=== PATIENT | female | born 1985 | race Caucasian/White ===

== ENCOUNTER 2016-07-27 13:27 | Outpatient (CLI) | payer MEDICAID ==
[2016-07-27 19:44] LABS: ALBUMIN/GLOBULIN RATIO 0.9 (1.0-2.2); BILIRUBIN,TOTAL 0.4 mg/dL (0.2-1.0); CALCIUM 9.4 mg/dL (8.5-10.3); CREATININE 0.7 mg/dL (0.4-1.0); POTASSIUM 4.3 mmol/L (3.5-5.0); TOTAL PROTEIN 7.9 g/dL (6.7-8.2)
== END 2016-07-27 13:28 | disposition home or self-care (01) ==
LOC: LAB.N 13:27
PROVIDERS: ATTEND Nurse Practitioner Gerontology
DX: Z79.899 Other long term (current) drug therapy (principal)
CPT/HCPCS: 36415; 80053

== ENCOUNTER 2016-07-29 13:43 | Outpatient (CLI) | payer MEDICAID ==
[2016-07-30 15:21] LABS: HEPATITIS A AB TOTAL(IMMUNITY) NON-REACTIVE (NON-REACTIVE)
== END 2016-07-29 13:44 ==
LOC: LAB.N 13:43
PROVIDERS: ATTEND Nurse Practitioner Gerontology
DX: R74.8 Abnormal levels of other serum enzymes (principal)
CPT/HCPCS: 36415; 86317; 86708; 86803; 87340; 87522

== ENCOUNTER 2016-08-11 13:35 | Outpatient (CLI) | payer MEDICAID ==
[2016-08-16 18:08] LABS: TEST RESULT REPORT (())
== END 2016-08-11 13:36 | disposition home or self-care (01) ==
LOC: LAB.N 13:35
PROVIDERS: ATTEND Nurse Practitioner Gerontology
DX: R74.8 Abnormal levels of other serum enzymes (principal)
CPT/HCPCS: 36415; 81599; 87521; 87522

== ENCOUNTER 2016-08-18 13:57 | Emergency (ER) | payer MEDICAID ==
[2016-08-18] MEDS ORDERED: KETOROLAC 60 MG/2 ML VIAL IM STA (14:52)
--- NOTE | 2016-08-18 14:55 | ED Physician Documentation ---
PD HPI BACK PAIN - Stated complaint Stated Complaint: BACK INJURY - Chief complaint Chief Complaint: Back Pain - History obtained from History obtained from: Patient - History of Present Illness Timing - onset: Other (31-year-old woman with chronic back pain, status post lumbar laminectomy several years ago. Was on baclofen for chronic spasticity and pain up until about a month ago and she was taken off by her physician. Over the last few days has had increase of pain after disassembling a couch at home and has a lot of pain with lifting, bending, sitting. It is in the low back and radiates to both hips but not further. She denies any saddle anesthesia, incontinence, or fevers.) Review of Systems Constitutional: denies: Fever, Chills Respiratory: denies: Dyspnea, Cough GI: denies: Abdominal Pain, Nausea, Vomiting : denies: Dysuria, Frequency PD PAST MEDICAL HISTORY - Past Medical History Respiratory: Asthma Neuro: None Musculoskeletal: Osteoarthritis, Chronic back pain - Past Surgical History Ortho: Spine surgery - Present Medications Home Medications: Ambulatory Orders Medication Instructions Recorded Confirmed Albuterol Sulfate [Proair Hfa 1 - 2 puffs PO Q4H PRN 08/18/16 08/18/16 Inhaler] Baclofen [Lioresal] 10 mg PO TID #30 tablet 08/18/16 Beclomethasone 80 Mcg [Qvar 80] 2 puffs PO BID 08/18/16 08/18/16 Cetirizine [ZyrTEC] 10 mg PO DAILY 08/18/16 08/18/16 Ethinyl Estradiol/Drospirenone 3 mg PO DAILY 08/18/16 08/18/16 [Fátima 28 Tablet] Fluticasone [Flonase] 1 spray RACQUEL DAILY PRN 08/18/16 08/18/16 Ibuprofen 800 mg PO TID PRN 08/18/16 08/18/16 Meloxicam [Mobic] 7.5 mg PO BIDWM PRN #15 tablet 08/18/16 Spironolactone 50 mg PO DAILY 08/18/16 08/18/16 metFORMIN [Glucophage] 500 mg PO BID 08/18/16 08/18/16 - Allergies Allergies/Adverse Reactions: Allergies Allergy/AdvReac Type Severity Reaction Status Date / Time gadopentetate dimeglumine * Allergy Unknown Hives Verified 08/18/16 14:39 [From Magnevist] acetaminophen [From Percocet] Allergy Itching Unverified 08/18/16 14:39 oxycodone HCl * Allergy Itching Unverified 08/18/16 14:39 [From Percocet] cyclobenzaprine HCl * AdvReac Unknown Verified 08/18/16 14:39 [From Flexeril] - Social History Does the pt smoke?: No Smoking Status: Never smoker PD ED PE NORMAL - Vitals Vital signs reviewed: Yes - General General: Alert and oriented X 3, No acute distress - HEENT HEENT: PERRL, EOMI - Extremities Extremities: Other (The patient has equal and normal patellar and Achilles reflexes bilaterally. Slight diminished sensation throughout the left leg which she says is chronic. Patient denies saddle anesthesia. Normal strength in flexion and extension at the ankles, knees and flexion of the hips.) - Neuro Neuro: Alert and oriented X 3, Normal speech - Psych Psych: Normal mood, Normal affect Results - Vitals Vitals: Vital Signs - 24 hr 08/18/16 14:04 Temperature 35.8 C L Heart Rate 104 H Respiratory 18 Rate Blood Pressure 148/86 H O2 Saturation 99 Oxygen O2 Source Room air PD MEDICAL DECISION MAKING - ED course ED course: Spinal epidural abscess was considered in this patient. The patient has no fever , is not diabetic, has no spinal tenderness, does not use IV drugs, and no bilateral neurologic symptoms. Therefore, spinal epidural abscess is considered exceedingly unlikely. It seems reasonable to put her back on her baclofen pending primary care followup since that was helping before. Departure - Departure Disposition: 01 Home, Self Care Clinical Impression: Back pain Qualifiers: Back pain location: low back pain Chronicity: chronic Back pain laterality: midline Sciatica presence: without sciatica Qualified Code(s): M54.5 - Low back pain; G89.29 - Other chronic pain Condition: Good Record reviewed to determine appropriate education?: Yes Instructions: ED Low Back Pain Injury Prescriptions: Baclofen [Lioresal] 10 mg PO TID #30 tablet Meloxicam [Mobic] 7.5 mg PO BIDWM PRN #15 tablet PRN Reason: Pain Comments: Call your doctor to arrange a follow up appointment. Make the next available appointment. In the interim return anytime if worse or if new symptoms develop. Your blood pressure was elevated today on check in to the emergency department. This does not mean that you have hypertension, it is a common phenomenon to check into the emergency department and have elevated blood pressure. I recommend that you see your primary care physician within the week to have it rechecked when you're feeling better.
[2016-08-18] MEDS ORDERED: KETOROLAC 60 MG/2 ML VIAL ONE (15:00)
[2016-08-18 15:35] VITALS: BP 130/83
== END 2016-08-18 15:33 | disposition home or self-care (01) ==
LOC: ED 13:57
DX: M54.5 Low back pain (principal); G89.29 Other chronic pain; R03.0 Elevated blood-pressure reading, without diagnosis of hypertension; J45.909 Unspecified asthma, uncomplicated; M19.90 Unspecified osteoarthritis, unspecified site
CPT/HCPCS: 96372; 99283

== ENCOUNTER 2016-08-19 16:01 | Emergency (ER) | payer MEDICAID ==
[2016-08-19 16:10] VITALS: BP 142/85
[2016-08-19] MEDS ORDERED: diazePAM 5 MG TABLET PO STA (16:43)
[2016-08-19] MEDS ORDERED: DEXAMETHASONE 10 MG/ML VIAL PO STA (16:43)
[2016-08-19] MEDS ORDERED: HYDROcod/ACETAM 5/325 MG TABLET PO STA (16:43)
[2016-08-19] MEDS ORDERED: diazePAM 5 MG TABLET PO ONE (16:54)
[2016-08-19] MEDS ORDERED: CHERRY SYRUP 10 ML UDC PO ONE (16:54)
[2016-08-19] MEDS ORDERED: HYDROcod/ACETAM 5/325 MG TABLET ONE (16:54)
[2016-08-19] MEDS ORDERED: DEXAMETHASONE 10 MG/ML VIAL ONE (16:55)
--- NOTE | 2016-08-19 17:30 | ED Physician Documentation ---
PD HPI BACK PAIN - Stated complaint Stated Complaint: BACK PX - Chief complaint Chief Complaint: Back Pain - History obtained from History obtained from: Patient, Family - History of Present Illness Timing - onset: Chronic Timing - details: Gradual onset Pain level max: 9 Pain level now: 9 Quality: Pain, Spasm Associated symptoms: No: Fever, Weakness, Numbness, Incontinent of urine, Unable to urinate, Hematuria, Incontinent of stool Improves with: Rest Worsened by: Movement Similar symptoms before: Diagnosis (Chronic back pain) Recently seen: Emergency Dept (Seen here yesterday for same) - Additional information Additional information: Patient is a 31-year-old female who presents to the emergency department with acute on chronic back pain. Has a history of a L4-L5 laminectomy several years ago. States she has been doing yard work and moving couches this week, increasing back pain over the past week. Was seen here yesterday and started on Mobic and baclofen without relief. Had been on baclofen previously for her back injury. Denies any fevers. Review of Systems Constitutional: denies: Fever, Chills Throat: denies: Sore throat Cardiac: denies: Chest pain / pressure Respiratory: denies: Cough GI: denies: Nausea, Vomiting, Diarrhea : denies: Dysuria, Frequency, Hesitancy, Discharge, Now EGA Skin: denies: Rash Musculoskeletal: denies: Neck pain Neurologic: denies: Focal weakness, Numbness, Confused, Altered mental status PD PAST MEDICAL HISTORY - Past Medical History Respiratory: Asthma Neuro: None Musculoskeletal: Osteoarthritis, Chronic back pain - Past Surgical History Past Surgical History: Yes Ortho: Spine surgery - Present Medications Home Medications: Ambulatory Orders Medication Instructions Recorded Confirmed Albuterol Sulfate [Proair Hfa 1 - 2 puffs PO Q4H PRN 08/18/16 08/18/16 Inhaler] Baclofen [Lioresal] 10 mg PO TID #30 tablet 08/18/16 Beclomethasone 80 Mcg [Qvar 80] 2 puffs PO BID 08/18/16 08/18/16 Cetirizine [ZyrTEC] 10 mg PO DAILY 08/18/16 08/18/16 Ethinyl Estradiol/Drospirenone 3 mg PO DAILY 08/18/16 08/18/16 [Fátima 28 Tablet] Fluticasone [Flonase] 1 spray RACQUEL DAILY PRN 08/18/16 08/18/16 Ibuprofen 800 mg PO TID PRN 08/18/16 08/18/16 Meloxicam [Mobic] 7.5 mg PO BIDWM PRN #15 tablet 08/18/16 Spironolactone 50 mg PO DAILY 08/18/16 08/18/16 metFORMIN [Glucophage] 500 mg PO BID 08/18/16 08/18/16 Hydrocodone/Acetaminophen 1 - 2 each PO Q6H PRN #14 tablet 08/19/16 [Hydrocodon-Acetaminophen 5-325] diazePAM [Valium] 5 - 10 mg PO TID PRN #15 tablet 08/19/16 - Allergies Allergies/Adverse Reactions: Allergies Allergy/AdvReac Type Severity Reaction Status Date / Time gadopentetate dimeglumine * Allergy Unknown Hives Verified 08/19/16 16:11 [From Magnevist] acetaminophen [From Percocet] Allergy Itching Verified 08/19/16 16:11 oxycodone HCl * Allergy Itching Verified 08/19/16 16:11 [From Percocet] cyclobenzaprine HCl * AdvReac Unknown Verified 08/19/16 16:11 [From Flexeril] - Social History Does the pt smoke?: No Smoking Status: Never smoker PD ED PE NORMAL - Vitals Vital signs reviewed: Yes - General General: Alert and oriented X 3, Well developed/nourished, Other (Appears uncomfortable) - HEENT HEENT: PERRL, Moist mucous membranes - Neck Neck: Supple, no meningeal sign - Cardiac Cardiac: RRR, Strong equal pulses - Respiratory Respiratory: No respiratory distress, Clear bilaterally - Abdomen Abdomen: Soft, Non tender, Non distended - Back Back: No spinal TTP, Other (No midline tenderness to palpation. Does have paraspinal spasm and tenderness in the low lumbar region.) - Derm Derm: Warm and dry - Extremities Extremities: Other (normal bilateral lower extremity patellar and ankle jerk reflexes. Normal great toe extension bilaterally) - Neuro Neuro: Alert and oriented X 3, secretary receptionist 2-12 intact, No motor deficit, No sensory deficit, Normal speech - Psych Psych: Normal mood, Normal affect Results - Vitals Vitals: Vital Signs - 24 hr 08/19/16 16:07 Temperature 35.3 C L Heart Rate 93 Respiratory 14 Rate Blood Pressure 142/85 H O2 Saturation 100 Oxygen O2 Source Room air PD MEDICAL DECISION MAKING - ED course Complexity details: reviewed results, re-evaluated patient, considered differential (no cauda equina, no spinal epidural abscess, no fracture, no aortic dissection or evidence of aneursym rupture), d/w patient ED course: Patient is a 31-year-old female with acute on chronic back pain. Pain greatly improved with hydrocodone and Valium here. She is able to stand and walk. She is feeling better. Will prescribe pain medications for home. This appears to be paraspinal spasm. No evidence of fracture, cauda equina, epidural abscess. Patient counseled regarding signs and symptoms for which I believe and urgent re -evaluation would be necessary. Patient with good understanding of and agreement to plan and is comfortable going home at this time This document was made in part using voice recognition software. While efforts are made to proofread this document, sound alike and grammatical errors may occur. Departure - Departure Disposition: 01 Home, Self Care Clinical Impression: Back pain Qualifiers: Back pain location: low back pain Chronicity: acute Back pain laterality: bilateral Sciatica presence: without sciatica Qualified Code(s): M54.5 - Low back pain Condition: Good Instructions: ED Low Back Pain Injury Follow-Up: Lisa Miles ARNP [Primary Care Provider] - Within 1 week Prescriptions: Hydrocodone/Acetaminophen [Hydrocodon-Acetaminophen 5-325] 1 - 2 each PO Q6H PRN #14 tablet PRN Reason: pain diazePAM [Valium] 5 - 10 mg PO TID PRN #15 tablet PRN Reason: Spasms Comments: Return if you worsen. This should improve over the next few days. Make sure to follow-up with your doctor for further evaluation and care. Do not drink alcohol or drive while on narcotic pain medicine. Note that many narcotic pain relievers also contain tylenol/acetaminophen. Please ensure that your total dose of acetaminophen from all sources does not exceed 3 grams (3000mg) per day. You may constipated on this medication, take a stool softener such as "Colace" twice a day while you are on it. Also recommend a [id number]-[id number]-xhlbmqd laxative such as senna or MiraLAX any day that you do not have a bowel movement. If you received narcotic pain medication in the emergency department, do not drive or operate machinery for the next 24 hours. Your blood pressure was elevated today on check in to the emergency department. This does not mean that you have hypertension, it is a common phenomenon to check into the emergency department and have elevated blood pressure. I recommend that you see your primary care physician within the week to have it rechecked when you're feeling better. Discharge Date/Time: 08/19/16 17:43
== END 2016-08-19 17:43 | disposition home or self-care (01) ==
LOC: ED 16:01
DX: M54.5 Low back pain (principal); R03.0 Elevated blood-pressure reading, without diagnosis of hypertension; J45.909 Unspecified asthma, uncomplicated; M19.90 Unspecified osteoarthritis, unspecified site
CPT/HCPCS: 99282; 99283; A9270

== ENCOUNTER 2016-10-18 16:18 | Outpatient (CLI) | payer MEDICAID ==
--- NOTE | 2016-10-19 09:22 | XRAY Report ---
THREE-VIEW LUMBAR SPINE: 10/18/2016 CLINICAL INDICATION: Back pain. COMPARISON: 03/14/2013 FINDINGS: AP, lateral, coned-down views of the lumbar spine demonstrate progression of degenerative disc and facet disease, now moderate. There is no evidence of interval fracture or subluxation. The bowel gas pattern appears unremarkable. IMPRESSION: MODERATE DEGENERATIVE CHANGES. NO EVIDENCE OF INTERVAL FRACTURE. 9:9:22 JOB #: [id number] EXT JOB #:[id number]
== END 2016-10-18 16:19 | disposition home or self-care (01) ==
LOC: DI.N 16:18
PROVIDERS: ATTEND Nurse Practitioner Gerontology
DX: M54.5 Low back pain (principal)
CPT/HCPCS: 72100

== ENCOUNTER 2016-11-17 13:53 | Outpatient (CLI) | payer MEDICAID ==
[2016-11-17 19:36] LABS: CALCIUM 8.8 mg/dL (8.5-10.3); CREATININE 0.8 mg/dL (0.4-1.0)
== END 2016-11-17 13:54 | disposition home or self-care (01) ==
LOC: LAB.N 13:53
PROVIDERS: ATTEND Nurse Practitioner Gerontology
DX: Z79.899 Other long term (current) drug therapy (principal)
CPT/HCPCS: 36415; 80048

== ENCOUNTER 2016-12-03 14:34 | Outpatient (CLI) | payer MEDICAID ==
--- NOTE | 2016-12-03 16:15 | Ultrasound Report ---
PELVIC ULTRASOUND: 12/03/2016 CLINICAL INDICATION: Irregular menses. TECHNIQUE: Transabdominal pelvic ultrasound performed for global evaluation. Transvaginal pelvic ultr asound performed for detailed evaluation. Real-time scanning performed and static images obtained. FINDINGS: The uterus is anteverted, measuring 8.7 x 5.5 x 2.8 cm. The endometrial echo complex measu res 6 mm. No focal myometrial lesion is seen. The ovaries are unremarkable, with the right measuring 3.4 x 2.3 x 2.1 cm, and the left measuring 2.8 x 2.6 x 2.3 cm. No free fluid is present. IMPRESSION: NORMAL PELVIC ULTRASOUND. JOB #: [id number] EXT JOB #:
== END 2016-12-03 14:35 | disposition home or self-care (01) ==
LOC: DI 14:34
PROVIDERS: ATTEND Registered Nurse
DX: N92.5 Other specified irregular menstruation (principal)
CPT/HCPCS: 76830; 76856

== ENCOUNTER 2017-03-18 13:45 | Outpatient (CLI) | payer MEDICAID ==
[2017-03-18 19:24] LABS: ALBUMIN 3.8 g/dL (3.2-5.5); BILIRUBIN,DIRECT 0.1 mg/dL (0.1-0.5); BILIRUBIN,TOTAL 0.6 mg/dL (0.2-1.0); TOTAL PROTEIN 7.4 g/dL (6.7-8.2)
== END 2017-03-18 13:46 | disposition home or self-care (01) ==
LOC: LAB.N 13:45
PROVIDERS: ATTEND Nurse Practitioner Gerontology
DX: R74.8 Abnormal levels of other serum enzymes (principal)
CPT/HCPCS: 36415; 80076

== ENCOUNTER 2017-11-06 16:27 | Emergency (ER) | payer MEDICAID ==
[2017-11-06 16:34] VITALS: BP 146/81
[2017-11-06] MEDS ORDERED: DEXAMETHASONE 10 MG/ML VIAL PO STA (16:43)
--- NOTE | 2017-11-06 16:53 | ED Physician Documentation ---
PD HPI BACK PAIN - Stated complaint Stated Complaint: BK PX - Chief complaint Chief Complaint: Back Pain - History obtained from History obtained from: Patient - History of Present Illness Timing - onset: How many days ago (4) Timing - duration: Days (4) Timing - details: Abrupt onset, Still present Location: Lower, Left Quality: Pain, Spasm, Sharp, Similar to prior episodes Associated symptoms: No: Fever, Weakness, Numbness, Incontinent of urine, Unable to urinate, Hematuria, Incontinent of stool Improves with: Rest, Ice, Position, Meds Worsened by: Movement Similar symptoms before: Diagnosis (sciatica) Recently seen: Not recently seen - Additional information Additional information: 32-year-old female with a prior history of back pain who is status post surgery has developed acute back pain about 4 days ago. This occurred to her when she bent over to pick up man her shoes. She has had spasm and pain similar to what she has had previously. She initially had pain radiating down both legs now the pain is only radiating down the left leg. Review of Systems Constitutional: denies: Fever Eyes: denies: Decreased vision Ears: denies: Ear pain Throat: denies: Sore throat Cardiac: denies: Chest pain / pressure Respiratory: denies: Dyspnea, Cough GI: reports: Constipation. denies: Abdominal Pain, Nausea, Vomiting : denies: Dysuria, Frequency Skin: denies: Rash Musculoskeletal: reports: Back pain, Extremity pain. denies: Neck pain PD PAST MEDICAL HISTORY - Past Medical History Past Medical History: Yes Respiratory: Asthma Musculoskeletal: Osteoarthritis, Chronic back pain - Past Surgical History Past Surgical History: Yes Ortho: Spine surgery - Present Medications Home Medications: Ambulatory Orders Medication Instructions Recorded Confirmed Albuterol Sulfate [Proair Hfa 1 - 2 puffs PO Q4H PRN 08/18/16 11/06/17 Inhaler] Cetirizine [ZyrTEC] 10 mg PO DAILY 08/18/16 11/06/17 Fluticasone [Flonase] 1 spray RACQUEL DAILY PRN 08/18/16 11/06/17 Ibuprofen 800 mg PO TID PRN 08/18/16 08/18/16 Spironolactone 50 mg PO DAILY 08/18/16 11/06/17 metFORMIN [Glucophage] 500 mg PO BID 06/21/17 09/09/18 HYDROcod/ACETAM 5/325 [[place] 5/325] 1 - 2 ea PO Q6H PRN #15 tablet 11/06/17 diazePAM [Valium] 5 - 10 mg PO TID PRN #20 tablet 11/06/17 - Allergies Allergies/Adverse Reactions: Allergies Allergy/AdvReac Type Severity Reaction Status Date / Time gadopentetate dimeglumine * Allergy Unknown Hives Verified 08/19/16 16:11 [From Magnevist] acetaminophen [From Percocet] Allergy Itching Verified 08/19/16 16:11 oxycodone HCl * Allergy Itching Verified 08/19/16 16:11 [From Percocet] cyclobenzaprine HCl * AdvReac Unknown Verified 08/19/16 16:11 [From Flexeril] - Social History Does the pt smoke?: No Smoking Status: Never smoker Does the pt drink ETOH?: No Does the pt have substance abuse?: No - Immunizations Immunizations are current?: Yes PD ED PE NORMAL - Vitals Vital signs reviewed: Yes (hypertensive mild ) - General General: Alert and oriented X 3, No acute distress, Well developed/nourished - HEENT HEENT: Atraumatic, PERRL, EOMI - Neck Neck: Supple, no meningeal sign - Respiratory Respiratory: No respiratory distress - Back Back: No CVA TTP, No spinal TTP, Other (There is paraspinous muscle spasms in the lower lumbar region on the left radiating into the left sciatic notch. ) - Derm Derm: Normal color, Warm and dry, No rash - Extremities Extremities: No deformity, No edema - Neuro Neuro: Alert and oriented X 3, cooperative extension agent 2-12 intact, No motor deficit, No sensory deficit, Normal speech Eye Opening: Spontaneous Motor: Obeys Commands Verbal: Oriented GCS Score: 15 - Psych Psych: Normal mood, Normal affect Results - Vitals Vitals: Vital Signs - 24 hr 11/06/17 16:31 Temperature 36.4 C L Heart Rate 100 Respiratory 20 Rate Blood Pressure 146/81 H O2 Saturation 100 Oxygen O2 Source Room air PD MEDICAL DECISION MAKING - ED course Complexity details: considered differential, d/w patient ED course: 32-year-old female with a history of chronic back pain has had an exacerbation of her back pain and she is administered dexamethasone 10 mg orally here in the emergency department and will place her on some pain medication and muscle relaxant. - Sepsis Event Vital Signs: Vital Signs - 24 hr 11/06/17 16:31 Temperature 36.4 C L Heart Rate 100 Respiratory 20 Rate Blood Pressure 146/81 H O2 Saturation 100 Oxygen O2 Source Room air Departure - Departure Disposition: 01 Home, Self Care Clinical Impression: Sciatica Qualifiers: Laterality: left Qualified Code(s): M54.32 - Sciatica, left side Condition: Stable Instructions: ED Sciatica Follow-Up: Lisa Miles ARNP [Primary Care Provider] - Prescriptions: diazePAM [Valium] 5 - 10 mg PO TID PRN #20 tablet PRN Reason: back spasm HYDROcod/ACETAM 5/325 [[place] 5/325] 1 - 2 ea PO Q6H PRN #15 tablet PRN Reason: Pain
[2017-11-06] MEDS ORDERED: CHERRY SYRUP 10 ML UDC PO ONE (16:56)
== END 2017-11-06 17:03 | disposition home or self-care (01) ==
LOC: ED 16:27
DX: M54.32 Sciatica, left side (principal)
CPT/HCPCS: 99283; A9270

== ENCOUNTER 2018-07-31 08:00 | Outpatient (CLI) | payer MEDICAID ==
[2018-07-31 12:06] LABS: BASOPHILS % (AUTO) 0.4 %; EOSINOPHILS # (AUTO) 0.2 10^3/uL (0.0-0.7); EOSINOPHILS % (AUTO) 3.1 %; HGB - HEMOGLOBIN 13.3 g/dL (12.0-16.0); LYMPHOCYTES # (AUTO) 1.6 10^3/uL (1.5-3.5); LYMPHOCYTES % (AUTO) 22.5 %; MEAN CORPUSCULAR HGB CONC 32.3 g/dL (32.0-36.0); MEAN CORPUSCULAR VOLUME 89.8 fL (81.0-99.0); MEAN PLATELET VOLUME 8.4 fL (7.9-10.8); MONOCYTES # (AUTO) 0.5 10^3/uL (0.0-1.0); MONOCYTES % (AUTO) 6.7 %; NEUTROPHILS # (AUTO) 4.9 10^3/uL (1.5-6.6); NEUTROPHILS % (AUTO) 67.3 %; PLT - PLATELET COUNT 282 10^3/uL (130-450); RED BLOOD COUNT 4.58 10^6/uL (4.20-5.40); RED CELL DISTRIBUTION WIDTH 14.1 % (12.0-15.0); WHITE BLOOD COUNT 7.2 x10^3/uL (4.8-10.8)
[2018-07-31 12:26] LABS: ALBUMIN 4.2 g/dL (3.2-5.5); ALBUMIN/GLOBULIN RATIO 1.2 (1.0-2.2); ALKALINE PHOSPHATASE 51 IU/L (42-121); ALT ALANINE AMINOTRANSFERASE 31 IU/L (10-60); AST ASPARTATE AMINOTRANSFERASE 28 IU/L (10-42); BILIRUBIN,TOTAL 0.6 mg/dL (0.2-1.0); BUN - BLOOD UREA NITROGEN 14 mg/dL (6-20); CALCIUM 9.2 mg/dL (8.5-10.3); CARBON DIOXIDE - CO2 27 mmol/L (21-32); CHLORIDE 104 mmol/L (101-111); CHOL/HDL RATIO 3.8 (<4.4); CHOLESTEROL 159 mg/dL; CREATININE 0.8 mg/dL (0.4-1.0); GFR - MDRD 82 (>89); GLUCOSE 94 mg/dL (70-100); HDL CHOLESTEROL 42 mg/dL; LDL CHOLESTEROL,CALCULATED 102 mg/dL; LDL/HDL RATIO 2.4 (<4.4); SODIUM 140 mmol/L (135-145); TOTAL PROTEIN 7.8 g/dL (6.7-8.2); VLDL CHOLESTEROL 15 mg/dL
== END 2018-07-31 23:59 | disposition home or self-care (01) ==
LOC: LAB.N 08:00
PROVIDERS: ATTEND Nurse Practitioner Gerontology
DX: E66.01 Morbid (severe) obesity due to excess calories (principal); I10 Essential (primary) hypertension
CPT/HCPCS: 36415; 80053; 80061; 83721; 85025

== ENCOUNTER 2019-05-03 11:00 | Outpatient (CLI) | payer MEDICAID ==
--- NOTE | 2019-05-03 14:33 | XRAY Report ---
Reason: FOOT PAIN Procedure Date: 05/03/2019 Accession Number: [id number] / [id number] Procedure: XRN - Foot 3 View RT CPT Code: Final Report FULL RESULT: EXAM: RIGHT FOOT RADIOGRAPHY EXAM DATE: 05/03/2019 11:22 AM. CLINICAL HISTORY: FOOT PAIN. Pain at the base of the right great toe for 2 weeks. COMPARISON: None. TECHNIQUE: 3 views. FINDINGS: Bones: Small nonspecific plantar calcaneal enthesophyte. No fractures or bone lesions. Joints: Normal. No subluxations. Soft Tissues: Normal. No soft tissue swelling. IMPRESSION: Normal foot radiography. The right great toe is unremarkable. RADIA
== END 2019-05-03 11:01 | disposition home or self-care (01) ==
LOC: DI.N 11:00
PROVIDERS: ATTEND Family Medicine
DX: M79.671 Pain in right foot (principal)

== ENCOUNTER 2020-03-28 12:44 | Outpatient (CLI) | payer MEDICAID ==
--- NOTE | 2020-03-28 16:39 | XRAY Report ---
PROCEDURE: Lumbar Spine Complete INDICATIONS: LOW BACK PAIN TECHNIQUE: 4 views of the lumbar spine were acquired. COMPARISON: X-ray lumbar spine 10/18/2016 FINDINGS: Bones: 5 [id number] vertebrae are present. There is trace retrolisthesis of L3 on L4, L4 on L5 . Moderate to severe disc space narrowing is present L3-4, L4-5 and L5-S1, mild to moderate L1-L2 and L2-3. There is severe foraminal narrowing at L5-S1, mild at L4-5. Multilevel nonbridging anterior os teophytes are present.. No vertebral body compression fractures. No suspicious bony lesions. Soft tissues: Overlying bowel gas pattern is normal. No suspicious soft tissue calcifications. IMPRESSION: Degenerative changes most severe at L5-S1 as above. Reviewed by: Yvonne Gomez MD on 03/28/2020 4:37 PM PST Approved by: Yvonne Gomez MD on 03/28/2020 4:37 PM PST Station ID: [id number]
== END 2020-03-28 12:45 | disposition home or self-care (01) ==
LOC: DI.N 12:44
PROVIDERS: ATTEND Family Medicine
DX: M47.817 Spondylosis without myelopathy or radiculopathy, lumbosacral region (principal)

== ENCOUNTER 2020-12-09 10:37 | Outpatient (CLI) | payer MEDICAID ==
[2020-12-09 17:52] LABS: BASOPHILS % (AUTO) 0.2 %; EOSINOPHILS # (AUTO) 0.2 10^3/uL (0.0-0.7); EOSINOPHILS % (AUTO) 2.6 %; HCT - HEMATOCRIT 44.1 % (37.0-47.0); HGB - HEMOGLOBIN 13.5 g/dL (12.0-16.0); LYMPHOCYTES # (AUTO) 1.6 10^3/uL (1.5-3.5); LYMPHOCYTES % (AUTO) 19.4 %; MEAN CORPUSCULAR HEMOGLOBIN 29.4 pg (27.0-31.0); MEAN CORPUSCULAR HGB CONC 30.6 g/dL (32.0-36.0); MEAN CORPUSCULAR VOLUME 96.1 fL (81.0-99.0); MEAN PLATELET VOLUME 10.2 fL (7.9-10.8); MONOCYTES # (AUTO) 0.7 10^3/uL (0.0-1.0); MONOCYTES % (AUTO) 8.1 %; NEUTROPHILS # (AUTO) 5.6 10^3/uL (1.5-6.6); NEUTROPHILS % (AUTO) 69.5 %; PLT - PLATELET COUNT 289 10^3/uL (130-450); RED BLOOD COUNT 4.59 10^6/uL (4.20-5.40); RED CELL DISTRIBUTION WIDTH 14.6 % (12.0-15.0)
[2020-12-09 18:03] LABS: BILIRUBIN,URINE NEGATIVE (NEGATIVE); GLUCOSE, URINE (UA) NEGATIVE (NEGATIVE); KETONES,URINE (UA) NEGATIVE (NEGATIVE); LEUKOCYTE ESTERASE, URINE NEGATIVE (NEGATIVE); NITRITE,URINE NEGATIVE (NEGATIVE); OCCULT BLOOD,URINE NEGATIVE (NEGATIVE); PROTEIN,URINE NEGATIVE (NEGATIVE); UROBILINOGEN,URINE 0.2 (NORMAL) E.U./dL (NORMAL)
[2020-12-09 18:09] LABS: CLARITY,URINE CLEAR (CLEAR)
[2020-12-09 18:13] LABS: ALBUMIN/GLOBULIN RATIO 1.1 (1.0-2.2); ALKALINE PHOSPHATASE 55 IU/L (42-121); ALT ALANINE AMINOTRANSFERASE 49 IU/L (10-60); AST ASPARTATE AMINOTRANSFERASE 44 IU/L (10-42); BILIRUBIN,TOTAL 0.8 mg/dL (0.2-1.0); BUN - BLOOD UREA NITROGEN 16 mg/dL (6-20); CALCIUM 9.2 mg/dL (8.5-10.3); CARBON DIOXIDE - CO2 31 mmol/L (21-32); CHLORIDE 98 mmol/L (101-111); CHOLESTEROL 163 mg/dL; CREATININE 0.8 mg/dL (0.4-1.0); GFR - MDRD 81 (>89); GLUCOSE 102 mg/dL (70-100); HDL CHOLESTEROL 41 mg/dL; LDL CHOLESTEROL,CALCULATED 104 mg/dL; LDL/HDL RATIO 2.5 (<4.4); POTASSIUM 4.5 mmol/L (3.5-5.0); SODIUM 136 mmol/L (135-145); TOTAL PROTEIN 7.5 g/dL (6.7-8.2); TRIGLYCERIDES 88 mg/dL; VLDL CHOLESTEROL 18 mg/dL
[2020-12-09 18:23] LABS: THYROID STIMULATING HORMONE 1.67 uIU/mL (0.34-5.60)
[2020-12-09 19:01] LABS: BACTERIA,URINE Rare /HPF (None Seen); EPITHELIAL CELLS,UR RARE Transitional /HPF (<= Few); RBC,URINE 0-5 /HPF (0-5); SQUAMOUS EPITHELIAL CELL,UR FEW Squamous (<= Few); WBC,URINE 0-3 /HPF (0-5)
[2020-12-09 20:05] LABS: ESTIMATED AVERAGE GLUCOSE 134 mg/dL (70-100); HEMOGLOBIN A1c% 6.3 % (4.27-6.07)
== END 2020-12-09 23:59 | disposition home or self-care (01) ==
LOC: LAB.WCP 10:37
PROVIDERS: ATTEND Nurse Practitioner
DX: R53.83 Other fatigue (principal); Z13.220 Encounter for screening for lipoid disorders; E28.2 Polycystic ovarian syndrome
CPT/HCPCS: 36415; 80053; 80061; 81001; 83036; 83721; 84443; 85025; 87086

== ENCOUNTER 2021-06-09 08:00 | Outpatient (CLI) | payer MEDICAID ==
[2021-06-09 18:18] LABS: BILIRUBIN,URINE NEGATIVE (NEGATIVE); GLUCOSE, URINE (UA) NEGATIVE (NEGATIVE); KETONES,URINE (UA) NEGATIVE (NEGATIVE); LEUKOCYTE ESTERASE, URINE NEGATIVE (NEGATIVE); NITRITE,URINE NEGATIVE (NEGATIVE); OCCULT BLOOD,URINE NEGATIVE (NEGATIVE); PROTEIN,URINE NEGATIVE (NEGATIVE); UROBILINOGEN,URINE 0.2 (NORMAL) E.U./dL (NORMAL)
[2021-06-09 18:24] LABS: CLARITY,URINE CLEAR (CLEAR)
[2021-06-09 18:26] LABS: WBC,URINE 0-3 /HPF (0-5)
[2021-06-09 18:27] LABS: BACTERIA,URINE Few /HPF (None Seen); RBC,URINE 0-5 /HPF (0-5); SQUAMOUS EPITHELIAL CELL,UR FEW Squamous (<= Few)
== END 2021-06-09 23:59 | disposition home or self-care (01) ==
LOC: LAB.R 08:00
PROVIDERS: ATTEND Nurse Practitioner
DX: R35.89 Other polyuria (principal)
CPT/HCPCS: 81001; 87086

== ENCOUNTER 2021-07-28 08:00 | Outpatient (CLI) | payer MEDICAID ==
--- NOTE | 2021-07-28 16:41 | XRAY Report ---
PROCEDURE: Chest 2 View X-Ray INDICATIONS: COUGH, SOB TECHNIQUE: 2 view(s) of the chest. COMPARISON: None. FINDINGS: Surgical changes and devices: None. Lungs and pleura: No pleural effusions or pneumothorax. Lungs are clear. Mediastinum: Mediastinal contours are normal. Heart size is normal. Bones and chest wall: No suspicious bony abnormalities. Soft tissues appear unremarkable. IMPRESSION: No acute cardiopulmonary disease process. Reviewed by: Ryann Burns MD, PhD on 07/28/2021 4:39 PM PDT Approved by: Ryann Burns MD, PhD on 07/28/2021 4:39 PM PDT Station ID: [id number]
== END 2021-07-28 23:59 | disposition home or self-care (01) ==
LOC: DI.N 08:00
PROVIDERS: ATTEND Registered Nurse
DX: R05.9 Cough, unspecified (principal); R06.02 Shortness of breath
CPT/HCPCS: 87275; 87276

== ENCOUNTER 2022-03-31 15:52 | Outpatient (CLI) | payer MEDICAID ==
[2022-03-31 17:56] LABS: BASOPHILS % (AUTO) 0.4 %; EOSINOPHILS # (AUTO) 0.2 10^3/uL (0.0-0.7); EOSINOPHILS % (AUTO) 2.8 %; HCT - HEMATOCRIT 45.8 % (37.0-47.0); HGB - HEMOGLOBIN 13.5 g/dL (12.0-16.0); LYMPHOCYTES # (AUTO) 1.9 10^3/uL (1.5-3.5); LYMPHOCYTES % (AUTO) 23.3 %; MEAN CORPUSCULAR HEMOGLOBIN 28.1 pg (27.0-31.0); MEAN CORPUSCULAR HGB CONC 29.5 g/dL (32.0-36.0); MEAN CORPUSCULAR VOLUME 95.4 fL (81.0-99.0); MEAN PLATELET VOLUME 10.4 fL (7.9-10.8); MONOCYTES # (AUTO) 0.7 10^3/uL (0.0-1.0); MONOCYTES % (AUTO) 8.4 %; NEUTROPHILS # (AUTO) 5.3 10^3/uL (1.5-6.6); PLT - PLATELET COUNT 299 10^3/uL (130-450); RED CELL DISTRIBUTION WIDTH 14.4 % (12.0-15.0); WHITE BLOOD COUNT 8.1 x10^3/uL (4.8-10.8)
[2022-03-31 18:10] LABS: ALBUMIN 3.7 g/dL (3.2-5.5); ALKALINE PHOSPHATASE 64 IU/L (42-121); ALT ALANINE AMINOTRANSFERASE 78 IU/L (10-60); AST ASPARTATE AMINOTRANSFERASE 62 IU/L (10-42); BILIRUBIN,TOTAL 0.7 mg/dL (0.2-1.0); BUN - BLOOD UREA NITROGEN 11 mg/dL (6-20); CALCIUM 9.5 mg/dL (8.5-10.3); CARBON DIOXIDE - CO2 30 mmol/L (21-32); CHLORIDE 101 mmol/L (101-111); CHOL/HDL RATIO 3.9 (<4.4); CHOLESTEROL 145 mg/dL; CREATININE 0.7 mg/dL (0.4-1.0); GFR - MDRD 94 (>89); GLUCOSE 85 mg/dL (70-100); HDL CHOLESTEROL 37 mg/dL; LDL CHOLESTEROL,CALCULATED 82 mg/dL; LDL/HDL RATIO 2.2 (<4.4); POTASSIUM 3.9 mmol/L (3.5-5.0); SODIUM 140 mmol/L (135-145); TOTAL PROTEIN 7.5 g/dL (6.7-8.2); TRIGLYCERIDES 128 mg/dL; VLDL CHOLESTEROL 26 mg/dL
[2022-03-31 18:21] LABS: THYROID STIMULATING HORMONE 1.51 uIU/mL (0.34-5.60)
[2022-03-31 20:54] LABS: ESTIMATED AVERAGE GLUCOSE 146 mg/dL (70-100); HEMOGLOBIN A1c% 6.7 % (4.27-6.07)
== END 2022-03-31 15:53 | disposition home or self-care (01) ==
LOC: LAB.N 15:52
PROVIDERS: ATTEND Nurse Practitioner
DX: R53.83 Other fatigue (principal)
CPT/HCPCS: 36415; 80053; 80061; 82607; 83036; 83721; 84443; 85025

== ENCOUNTER 2022-05-25 13:02 | Outpatient (CLI) | payer MEDICAID ==
--- NOTE | 2022-05-25 15:18 | XRAY Report ---
PROCEDURE: Lumbar Spine 2 View INDICATIONS: CHRONIC LOW BACK PAIN TECHNIQUE: 3 views of the lumbar spine were acquired. COMPARISON: None. FINDINGS: Bones: 5 [id number]-dlcjuiz vertebrae are present. There is normal bony alignment. No vertebral body compression fractures. No suspicious bony lesions. Moderate degenerative changes noted throughout th e lumbar spine. Mild L3-L4, L4-L5 and L5-S1 facet arthropathy. Soft tissues: Overlying bowel gas pattern is normal. No suspicious soft tissue calcifications. IUD projects over the mid pelvis. IMPRESSION: 1. Multilevel degenerative disc disease. 2. Multilevel facet arthropathy. 3. No fracture. No acute osseous lesion. If there is continued clinical concern for pathology, then M RI should be considered for further evaluation. Reviewed by: Ryann Burns MD, PhD on 05/25/2022 3:17 PM PDT Approved by: Ryann Burns MD, PhD on 05/25/2022 3:17 PM PDT Station ID: [id number]
== END 2022-05-25 13:03 | disposition home or self-care (01) ==
LOC: DI 13:02
PROVIDERS: ATTEND Registered Nurse
DX: M51.36 Other intervertebral disc degeneration, lumbar region (principal); M47.816 Spondylosis without myelopathy or radiculopathy, lumbar region; M47.817 Spondylosis without myelopathy or radiculopathy, lumbosacral region

== ENCOUNTER 2022-06-10 21:58 | Outpatient (CLI) | payer MEDICAID ==
--- NOTE | 2022-06-11 10:47 | Ultrasound Report ---
PROCEDURE: Pelvic w/Transvaginal INDICATIONS: EXCESSIVE AND FREQUENT MENSTRATION TECHNIQUE: Real-time scanning was performed of the pelvic organs, with image documentation. Additional endovagi nal scanning was necessary due to incomplete visualization of the adnexal and endometrial structures by transabdominal scanning. COMPARISON: None. FINDINGS: Suboptimal evaluation due to patient body habitus. Uterus: Uterus is anteverted and normal in size at 7.7 x 3.2 x 3.9 cm. The myometrium is heterogene ous. The endometrium measures 10 mm in combined thickness. IUD within the endometrial cavity. Nabot hian cysts. Ovaries: The right ovary measures 3.1 x 2 x 2.6 cm, with a calculated ovarian volume of 8.4 cc. The left ovary measures 2.9 x 3.2 x 2.9 cm, with a calculated ovarian volume of 14 cc. The ovaries have a normal sonographic appearance. Greater than 12 follicles can be seen in each ovary. No adnexal m asses are seen. Other: No pathologic free abdominal or pelvic fluid. IMPRESSION: Greater than 12 follicles. Ovary, which may indicate polycystic ovarian syndrome IUD within the endometrial cavity. Reviewed by: Graeme Richard on 06/11/2022 10:46 AM PDT Approved by: Graeme Richard on 06/11/2022 10:46 AM PDT Station ID: [id number]
== END 2022-06-10 21:59 | disposition home or self-care (01) ==
LOC: DI 21:58
PROVIDERS: ATTEND Nurse Practitioner Obstetrics & Gynecology
DX: N92.1 Excessive and frequent menstruation with irregular cycle (principal); Z97.5 Presence of (intrauterine) contraceptive device

== ENCOUNTER 2022-08-04 13:47 | Outpatient (CLI) | payer MEDICAID ==
[2022-08-04 17:58] LABS: ESTIMATED AVERAGE GLUCOSE 111 mg/dL (70-100); HEMOGLOBIN A1c% 5.5 % (4.27-6.07)
[2022-08-04 18:41] LABS: FOLLICLE STIMULATING HORMONE 5.16 mIU/mL
[2022-08-04 18:42] LABS: LUTEINIZING HORMONE 8.09 mIU/mL
== END 2022-08-04 13:48 | disposition home or self-care (01) ==
LOC: LAB.N 13:47
PROVIDERS: ATTEND Nurse Practitioner
DX: E11.9 Type 2 diabetes mellitus without complications (principal); N92.0 Excessive and frequent menstruation with regular cycle
CPT/HCPCS: 36415; 82043; 82570; 83001; 83002; 83036

== ENCOUNTER 2022-08-26 15:46 | Outpatient (CLI) | payer MEDICAID ==
--- NOTE | 2022-08-26 16:34 | SLEEP CARE CONSULTATION ---
Information from patient questionnaire entered by Serenity Eng. I have reviewed and concur with the information entered by Serenity Eng. This document represents the service I personally performed and the decisions made by me, Bhavana Chiang ARNP. History of Present Illness Service Date and Time: 08/26/2022 1546 Reason for Visit: New patient, Previously diagnosed sleep apnea (mild), Re- establish care Chief Complaint: reports: Excessive daytime sleepiness, Frequent awakenings at night Date of Onset: DEC-MAR Usual bedtime: 12-1AM Time it takes to fall asleep: 15MINS Snores at night: Yes Observed to quit breathing while asleep: No Sleeps alone due to snoring: No Number of times waking at night: 0 Reasons for waking at night: reports: Pain, Bathroom. denies: Choking, Gasping for air Toss, Turn, or Twitch while sleeping: Yes Recalls having dreams: Yes Usually gets out of bed at: 8-9AM Feels refreshed in the morning: No (improving lately) Morning headache: No Sleepy or fatigued during the day: Yes Ever fallen asleep while driving: No Takes day naps: Yes (rare) Dreams during day naps: No Prior sleep studies: Yes Year and Where: 2013 [facility] Additional HPI information: I had the pleasure of seeing KRISTYN MONROE today regarding sleep issues. She was previously diagnosed with mild obstructive sleep apnea with an AHI of 5.8 in 2013 here at [facility]. She did not start any therapy at that time since her sleep apnea was minimal. Her current complaints are excessive daytime sleepiness and frequent night awakenings. She is sleeping alone and no one has been telling her she snores. But, she will wake up from snoring if she sleeps on her back. She normally will sleep on her sides. She has a "bad back" and sleeping on her back is not comfortable. She had Covid last winter, December, and she continued having daytime fatigue for months after she was clear of the Covid infection. She states in the last month the daytime sleepiness has been improving. She has come back in to see if there are any changes with her apnea. She was diagnosed with diabetes but her A1c has improved to 5.5 after losing 54 pounds in the last 5 months. - Parasomnia Symptoms Ever been unable to move upon waking from sleep: No Walks in sleep: No Talks in sleep: No Ever acted out dreams in sleep: No Ever felt weak in the knees when startled or emotional: No Bothered by creepy, crawly, restless sensations in legs: No Problems with memory or concentration: Yes (both, has anxiety disorder that "messes" with concentration) Subjective Initial [place] Sleepiness Scale score: 4 (08/26/22) Past Medical History Past Medical History: reports: Diabetes, Arthritis, Insulin resistance, Anxiety, Asthma, Other (PCOS, SPINAL STENOSIS, CELIACS DISEASE) Social History The patient's occupation is a [employer]. Patient is Single and lives in [place]. Have you smoked in the past 12 months: No Alcohol use: No Caffeine use: No Family History Family history of sleep disordered breathing: Yes Family Hx Sleep Apnea: Mother: Snoring, Sleep apnea - Untreated, Sibling: Snoring, Sleep apnea - Untreated Allergies and Home Medications Known drug allergies: Yes (as listed) Drug allergies reviewed: Yes Home medication list reviewed: Yes (tizanidine 4 mg prn) Allergy and home medication list: Allergies gadopentetate dimeglumine * [From Magnevist] Allergy (Unknown, Verified 08/25/22 14:40) Hives Pt needs to be premedicated before any MRI that will include an IV injection. acetaminophen [From Percocet] Allergy (Verified 08/25/22 14:40) Itching n/v/d oxycodone HCl * [From Percocet] Allergy (Verified 08/25/22 14:40) Itching cyclobenzaprine HCl * [From Flexeril] Adverse Reaction (Verified 08/25/22 14:40) Unknown Review of Systems Weight gain over past 5 years: 55 Weight loss over past 5 years: 30 Cardiovascular: denies: high blood pressure Gastrointestinal: denies: heartburn Neurological: denies: headaches Psychiatric: reports: anxiety Ear/Nose/Throat: reports: sinus problems, tonsillectomy (taken out when child, may have regrown, unsure) Musculoskeletal: reports: joint pain, neck pain, back pain, muscle pain or cramping Immunologic: reports: itching, allergies to food or environment Physical Exam Vital signs obtained and entered by: SERENITY Bello MA Blood Pressure: 130/80 (LEFT ARM) Cuff size: long Heart Rate: 93 O2 Saturation: 97 Height: 5 ft 10 in Weight: 290 lb 9.6 oz Body Mass Index: 41.7 BMI Classification: Morbidly Obese Neck circumference: 20 Mouth and throat: narrow oropharynx Soft palate: long Hard palate: normal Uvula: normal Uvula visualization: 0% Mallampati Class IV Tongue: enlarged in size with teeth gandara on lateral edges Tonsils: absent bilaterally Neck: normal w/o lymphadenopathy or thyromegaly Heart: regular rate and rhythm Lungs: clear bilaterally Impression and Plan 1. Suspected Obstructive Sleep Apnea-Hypopnea Syndrome, as previously diagnosed and as suggested by a history of irregular snoring, unrefreshed sleep, frequent night awakenings, cognitive impairment, and excessive daytime sleepiness. I jay mmend proceeding to polysomnography to confirm the diagnosis and to assess severity. If the patient has significant sleep disordered breathing, a manual CPAP titration study will also be performed to find the optimal treatment pressure. I informed the patient of what the sleep studies involve and after some discussion, obtained agreement to proceed. The pathophysiology of obstructive sleep apnea-hypopnea syndrome was discussed with the patient and health risks of cardiovascular and cerebrovascular disease if not treated. Risks of drowsy driving discussed in detail and patient advised to avoid long distance driving and to green chain puller at the first sign of drowsiness. Patient agreed to plan. * Schedule polysomnography +- manual CPAP titration study and return in 1-2 weeks after the study to discuss result and initiate therapy. * Avoid long distance driving or driving when feeling sleepy. * Avoid alcohol, sedative and muscle relaxant around bedtime. * Attempt to lose weight. * Review instructions provided by trained office staff on how to prepare for the sleep study. * Return for follow-up after sleep study completed. Counseling Topics: Weight loss health impact Visit Type: In Office Time Spent with Patient (minutes): 31 Provider Statement: I spent 100% of the Face to Face Visit with the patient with greater than 50% spent counseling the patient and coordination of care.
[2022-08-26 16:36] VITALS: BP 130/80
== END 2022-08-26 15:47 | disposition home or self-care (01) ==
LOC: SC 15:46
PROVIDERS: ATTEND Nurse Practitioner Family
DX: G47.33 Obstructive sleep apnea (adult) (pediatric) (principal); E66.01 Morbid (severe) obesity due to excess calories; Z68.41 Body mass index [BMI] 40.0-44.9, adult
CPT/HCPCS: 99203; 99212

== ENCOUNTER 2022-10-11 15:15 | Outpatient (CLI) | payer MEDICAID | END 2022-10-11 23:59 | disposition critical access hospital (66) | LOC: EMS 15:15 | DX: R11.2 Nausea with vomiting, unspecified (principal); R19.7 Diarrhea, unspecified; L50.0 Allergic urticaria | CPT/HCPCS: A0425; A0427; A0999 ==

== ENCOUNTER 2022-10-11 15:39 | Emergency (ER) | payer MEDICAID ==
--- NOTE | 2022-10-11 15:57 | ED Physician Documentation ---
PD HPI SKIN - Stated complaint Stated Complaint: N/V/HIVES - History obtained from History obtained from: Patient, EMS (given benadryl and epi enroute. Did not have anaphylactic symptoms, but had bodywide hives.) - History of Present Illness Timing - onset: Today (continues with some diarrhea today and nausea. Onset hives this morning on legs whcih have progressed to whole body. No swelling tongue, throat, nor trouble breathing.), Last night (onset of nausea and vomiting few times along with multiple watery stools last night.) Timing - details: Abrupt onset Location: Bodywide Associated symptoms: N/V/D. No: Fever, Myalgias, Facial swelling, Dyspnea Contributing factors: Exposed to food (she ate watermelon last evening couple hours prior to onset of the nausea and vomiting. No other apparent new foods, meds.) Similar symptoms before: Has not had sx before Recently seen: Not recently seen Review of Systems Constitutional: denies: Fever, Chills Nose: denies: Rhinorrhea / runny nose, Congestion Throat: denies: Sore throat Respiratory: denies: Cough GI: reports: Nausea, Vomiting, Diarrhea. denies: Abdominal Swelling, Hematemesis, Bloody / black stool Skin: reports: Rash (today) Neurologic: reports: Generalized weakness PD PAST MEDICAL HISTORY - Past Medical History Respiratory: Asthma Musculoskeletal: Osteoarthritis, Chronic back pain - Past Surgical History Past Surgical History: Yes Ortho: Spine surgery - Present Medications Home Medications: Ambulatory Orders Medication Instructions Recorded Confirmed Albuterol Sulfate [Proair Hfa 1 - 2 puffs PO Q4H PRN 08/18/16 08/26/22 Inhaler] Cetirizine [ZyrTEC] 10 mg PO DAILY 08/18/16 08/26/22 Ibuprofen 800 mg PO TID PRN 08/18/16 08/26/22 Spironolactone 50 mg PO DAILY 08/18/16 08/26/22 metFORMIN [Glucophage] 500 mg PO BID 08/18/16 08/26/22 HYDROcod/ACETAM 5/325 [Dell 5/325] 1 - 2 ea PO Q6H PRN #15 tablet 11/06/17 08/26/22 Budesonide/Formoterol Fumarate See Rx Instructions .ROUTE .COMPLEX 08/26/22 08/26/22 [Symbicort 160-4.5 Mcg Inhaler] Norethindrone See Rx Instructions .ROUTE .COMPLEX 08/26/22 08/26/22 methocarbamoL [Robaxin] See Rx Instructions .ROUTE .COMPLEX 08/26/22 08/26/22 Diphenoxylate/Atropine [Lomotil] 1 each PO QID PRN #12 tablet 10/11/22 dexAMETHasone [Decadron] 4 mg PO DAILY #5 tablet 10/11/22 - Allergies Allergies/Adverse Reactions: Allergies Allergy/AdvReac Type Severity Reaction Status Date / Time gadopentetate dimeglumine * Allergy Unknown Hives Verified 08/26/22 15:57 [From Magnevist] acetaminophen [From Percocet] Allergy Itching Verified 08/26/22 15:57 ceftriaxone [From Rocephin] Allergy Hives Verified 10/11/22 16:00 oxycodone HCl * Allergy Itching Verified 08/26/22 15:57 [From Percocet] Sulfa (Sulfonamide Allergy Hives Verified 10/11/22 16:00 Antibiotics) cyclobenzaprine HCl * AdvReac Unknown Verified 08/26/22 15:57 [From Flexeril] - Social History Does the pt smoke?: No Smoking Status: Never smoker Does the pt drink ETOH?: No Does the pt have substance abuse?: No - Immunizations Immunizations are current?: Yes PD ED PE NORMAL - Vitals Vital signs reviewed: Yes - General General: Alert and oriented X 3, No acute distress, Well developed/nourished - HEENT HEENT: Pharynx benign - Neck Neck: Supple, no meningeal sign, No adenopathy - Cardiac Cardiac: RRR - Respiratory Respiratory: No respiratory distress, Clear bilaterally - Derm Derm: Normal color, Warm and dry, Other (diffuse hives appearing rash.) - Neuro Neuro: Alert and oriented X 3, No motor deficit, Normal speech Results - Vitals Vitals: Vital Signs - 24 hr 10/11/22 10/11/22 10/11/22 15:50 16:04 16:50 Temperature 36.7 C Heart Rate 123 H 124 H 123 H Respiratory 14 16 16 Rate Blood Pressure 110/72 103/74 116/78 O2 Saturation 98 95 98 10/11/22 10/11/22 18:11 18:40 Temperature Heart Rate 98 95 Respiratory 21 15 Rate Blood Pressure 125/82 H 122/80 O2 Saturation 93 95 Oxygen O2 Source Room air PD Medical Decision Making - ED course Complexity details: re-evaluated patient (hives are fading. No development of throat/tongue swelling nor dyspnea. ), considered differential (nuasea vomiting diarrhea last night. hives today. ), d/w patient Departure - Departure Disposition: 01 Home, Self Care Clinical Impression: Allergic reaction, Hives, Vomiting and diarrhea Condition: Stable Record reviewed to determine appropriate education?: Yes Instructions: ED Allergic Reaction General Other, ED Diet Vomiting Diarrhea Follow-Up: Analia Li ARNP [Primary Care Provider] - Prescriptions: dexAMETHasone [Decadron] 4 mg PO DAILY #5 tablet Diphenoxylate/Atropine [Lomotil] 1 each PO QID PRN #12 tablet PRN Reason: Diarrhea Comments: The vomiting and diarrhea sound likely to be either a viral "stomach flu" or possibly a food poisoning related. Most commonly these will last for a day or 2 and then improved. Some of the viral processes can last longer. Recheck if the diarrhea has not improved over the next day or 2. You can use [id number] Imodium/loperamide or prescription Lomotil for the diarrhea. Continue with nausea medicine at home if needed. [place] food initially but some starches or carbohydrates initially can be helpful for the diarrhea (rice, pastas, breads or similar). Small frequent fluids for hydration. Its unclear the cause of your hives. I would suggest continuing with cetirizine antihistamine twice daily for the next several days to week. If you have persisting hives into tomorrow, then continue with the steroid Decadron for several more days. Recheck if not improved well over the next few days. I sent your prescription to [facility] pharmacy. Forms: PCP List Discharge Date/Time: 10/11/22 18:41
[2022-10-11] MEDS ORDERED: SODIUM CHLORIDE 0.9% 1,000 ML IV STA (16:22)
[2022-10-11] MEDS ORDERED: CETIRIZINE 10 MG TABLET PO STA (16:22)
[2022-10-11] MEDS ORDERED: DEXAMETHASONE 10 MG/ML VIAL IVP STA (16:28)
[2022-10-11] MEDS ORDERED: diphenhydrAMINE INJ 50 MG/ML VIAL IVP STA (16:29)
[2022-10-11] MEDS ORDERED: FAMOTIDINE 20 MG/2 ML VIAL IVP STA (16:29)
[2022-10-11] MEDS ORDERED: ONDANSETRON 4 MG/2 ML VIAL IVP STA (16:30)
[2022-10-11] MEDS ORDERED: MAG HYDROX/AL HYDROX/SIMETH 30 ML UDC PO STA (16:30)
[2022-10-11 18:48] VITALS: BP 122/80; O2SAT 95
== END 2022-10-11 18:41 | disposition home or self-care (01) ==
LOC: EDUNIT# → ED 15:39
DX: T78.1XXA Other adverse food reactions, not elsewhere classified, initial encounter (principal); L50.9 Urticaria, unspecified; R11.2 Nausea with vomiting, unspecified
CPT/HCPCS: 96374; 96375; 99283; A9270; J1200

== ENCOUNTER 2022-11-08 09:37 | Outpatient (CLI) | payer MEDICAID ==
[2022-11-08 13:08] LABS: ESTIMATED AVERAGE GLUCOSE 108 mg/dL (70-100); HEMOGLOBIN A1c% 5.4 % (4.27-6.07)
[2022-11-08 13:22] LABS: ALBUMIN 4.2 g/dL (3.2-5.5); ALBUMIN/GLOBULIN RATIO 1.4 (1.0-2.2); BILIRUBIN,TOTAL 0.4 mg/dL (0.2-1.0); CALCIUM 9.9 mg/dL (8.5-10.3); CREATININE 0.8 mg/dL (0.6-1.3); POTASSIUM 4.2 mmol/L (3.5-4.5); TOTAL PROTEIN 7.2 g/dL (6.4-8.9)
== END 2022-11-08 09:38 | disposition home or self-care (01) ==
LOC: LAB.N 09:37
PROVIDERS: ATTEND Nurse Practitioner
DX: R74.8 Abnormal levels of other serum enzymes (principal); E11.9 Type 2 diabetes mellitus without complications
CPT/HCPCS: 36415; 80053; 83036

== ENCOUNTER 2023-09-12 10:52 | Outpatient (CLI) | payer MEDICAID ==
[2023-09-12 18:02] LABS: BASOPHILS % (AUTO) 0.3 %; EOSINOPHILS # (AUTO) 0.3 10^3/uL (0.0-0.7); HCT - HEMATOCRIT 46.8 % (37.0-47.0); HGB - HEMOGLOBIN 14.2 g/dL (12.0-16.0); LYMPHOCYTES # (AUTO) 1.6 10^3/uL (1.5-3.5); LYMPHOCYTES % (AUTO) 23.5 %; MEAN CORPUSCULAR HEMOGLOBIN 29.1 pg (27.0-31.0); MEAN CORPUSCULAR HGB CONC 30.3 g/dL (32.0-36.0); MEAN CORPUSCULAR VOLUME 95.9 fL (81.0-99.0); MONOCYTES # (AUTO) 0.6 10^3/uL (0.0-1.0); MONOCYTES % (AUTO) 8.2 %; NEUTROPHILS # (AUTO) 4.3 10^3/uL (1.5-6.6); NEUTROPHILS % (AUTO) 63.7 %; PLT - PLATELET COUNT 252 10^3/uL (130-450); RED BLOOD COUNT 4.88 10^6/uL (4.20-5.40); WHITE BLOOD COUNT 6.7 x10^3/uL (4.8-10.8)
[2023-09-12 18:03] LABS: ALBUMIN 3.9 g/dL (3.2-5.5); ALBUMIN/GLOBULIN RATIO 1.1 (1.0-2.2); ALKALINE PHOSPHATASE 54 IU/L (42-121); ALT ALANINE AMINOTRANSFERASE 38 IU/L (10-60); AST ASPARTATE AMINOTRANSFERASE 33 IU/L (10-42); BILIRUBIN,TOTAL 0.7 mg/dL (0.2-1.0); BUN - BLOOD UREA NITROGEN 11 mg/dL (6-20); CALCIUM 9.4 mg/dL (8.5-10.3); CARBON DIOXIDE - CO2 30 mmol/L (21-32); CHLORIDE 105 mmol/L (101-111); CHOL/HDL RATIO 3.9 (<4.4); CHOLESTEROL 154 mg/dL; CREATININE 0.7 mg/dL (0.6-1.3); GFR - MDRD 93 (>89); GLUCOSE 104 mg/dL (74-104); HDL CHOLESTEROL 39 mg/dL; LDL CHOLESTEROL,CALCULATED 98 mg/dL; LDL/HDL RATIO 2.5 (<4.4); POTASSIUM 4.2 mmol/L (3.5-4.5); SODIUM 139 mmol/L (135-145); TOTAL PROTEIN 7.6 g/dL (6.4-8.9); TRIGLYCERIDES 87 mg/dL; VLDL CHOLESTEROL 17 mg/dL
[2023-09-12 18:22] LABS: THYROID STIMULATING HORMONE 1.13 uIU/mL (0.34-5.60)
== END 2023-09-12 10:53 | disposition home or self-care (01) ==
LOC: LAB.N 10:52
PROVIDERS: ATTEND Nurse Practitioner
DX: R53.83 Other fatigue (principal); Z13.220 Encounter for screening for lipoid disorders; E66.01 Morbid (severe) obesity due to excess calories; R74.8 Abnormal levels of other serum enzymes
CPT/HCPCS: 36415; 80053; 80061; 83721; 84443; 85025